=== PATIENT | female | born 1985 | race Hispanic/Latino ===

== ENCOUNTER 2021-02-05 15:21 | Emergency (ER) | payer SELFPAY ==
[2021-02-05 15:32] VITALS: BP 125/65; PULSE 98; RESP 16; TEMP 36.7; O2SAT 99
--- NOTE | 2021-02-05 15:40 | ED.HA ---
HPI - Headache General Chief Complaint: Headache Stated Complaint: Headache History of Present Illness HPI Narrative: This is a 35-year-old female comes in complaining of a headache states that the pain is behind her right eye she has had some nausea no vomiting patient states that she has been having this pain for approximately 2 weeks she is taken Tylenol with no relief. Patient has a neurologist who she has not had opportunity to go see you again patient states that the Tylenol has not been helping. Related Data Allergies Allergy/AdvReac Type Severity Reaction Status Date / Time No Known Allergies Allergy Verified 02/05/21 16:25 Review of Systems Review of Systems: CONSTITUTIONAL: Denies fever, chills, or sweats. EYES: Denies visual changes, redness, or discharge. Pain behind the right eye ENT: Denies rhinorrhea, congestion, sore throat, or otalgia. CARDIOVASCULAR:Denies chest pain, palpitations, or edema. Head pain RESPIRATORY: Denies cough or dyspnea. GASTROINTESTINAL: Denies abdominal pain, nausea, vomiting, or diarrhea. GENITOURINARY: Denies dysuria or hematuria. SKIN:[Denies rash or itching. MUSCULOSKELETAL:Denies back pain, joint pain, or myalgia. NEUROLOGIC: complainers headache with nausea , no numbness, or weakness. PSYCHIATRIC:Denies anxiety or depression PMFSH Comments At time as signature, I have reviewed and agree with nursing past medical, social, surgical and family history. Please see nursing chart for further information. There is no relevant family history pertinent to the presenting complaint. Exam Narrative: GENERAL:Well-appearing, well-nourished, and in no acute distress. HEAD:Normocephalic, atraumatic. EYES: PERRLA and EOMI. ENT: Nares clear, no rhinorrhea or epistaxis. Mucous membranes moist. NECK: Supple. CHEST: Clear to auscultation. No respiratory distress. HEART: Regular rate and rhythm. ABDOMEN: Soft, nontender, nondistended, normal active bowel sounds. EXTREMITIES: Normal range of motion. No edema. SKIN: Warm, dry, no rash. NEURO: No focal deficits. Alert and oriented x3. Headache pressure behind the right eye Course SPOUTER/PA Physician Supervision Patient given Benadryl, Toradol and some Zofran patient late and slept for approximately 1 hour states that the medication has taken her headache away Vital Signs Vital signs: Vital Signs Temperature 98.1 F 02/05/21 15:32 Pulse Rate 98 02/05/21 15:32 Respiratory Rate 16 02/05/21 15:32 Blood Pressure 125/65 02/05/21 15:32 Pulse Oximetry 99 02/05/21 15:32 Temperature 98.1 F 02/05/21 15:32 Pulse Rate 98 02/05/21 15:32 Respiratory Rate 16 02/05/21 15:32 Blood Pressure 125/65 02/05/21 15:32 Pulse Oximetry 99 02/05/21 15:32 MDM - Headache Differential Diagnosis Differential diagnosis: Likely migraine, tension headache, subarachnoid hemorrhage, headache, meningitis and sinusitis Discharge Plan Discharge Clinical Impression: Migraine Qualifiers: Migraine type: without aura Status migrainosus presence: without status migrainosus Intractability: not intractable Qualified Code(s): G43.009 - Migraine without aura, not intractable, without status migrainosus Patient Disposition: Home, Self-Care Condition: Stable Instructions: Antibiotic Form, Acute Headache (ED) Additional Instructions: Use the medication as provided for severe pain--caution drowsiness--do not drink alcohol or drive with these medications. caution each tablet contains 325 mg of Tylenol--the maximum dose of Tylenol is 4000 mg in 24 hours. This medication may cause constipation consider starting a laxative at this time Prescriptions: New ibuprofen 600 mg tablet 600 mg PO TID PRN (Reason: pain) Qty: 30 RF: 0 ondansetron 4 mg tablet,disintegrating 4 mg PO Q8H PRN (Reason: nausea and vomiting) Qty: 14 RF: 0 Follow-up/Referrals: PHYSICIAN,DRY WALL NAILER [Primary Care Provider] - Time of Disposition: 17:14
[2021-02-05] MEDS: diphenhydrAMINE HCl CAP 25 MG CAPSULE 50 MG PO (16:02)
[2021-02-05] MEDS: ONDANSETRON HCL ODT 4 MG TABLET PO (16:03)
[2021-02-05] MEDS: KETOROLAC 30 MG/ML VIAL (*BKC) IM (16:03)
--- NOTE | 2021-02-05 17:56 | PC.NURSE ---
1700 pt resting on stretcher waiting for spouse to pick her up. Pt states feeling better at this time.
== END 2021-02-05 18:02 | disposition home or self-care (01) ==
PROVIDERS: Emergency Provider Nurse Practitioner Family
DX: G43.009 Migraine without aura, not intractable, without status migrainosus (principal)
CPT/HCPCS: 96372; 99213; A9270; G0463; J1885